=== PATIENT | male | born 1970 | race African-American/Black ===

== ENCOUNTER 2022-12-11 22:13 | Emergency (ER) | payer OTHER ==
[2022-12-11 22:18] VITALS: TEMP 98.2
[2022-12-11] MEDS ORDERED: MORPHINE SULFATE 4 MG/ML SYRINGE IM STA (22:36)
--- NOTE | 2022-12-11 22:42 | ED ---
Extremity Problem HPI - General Chief complaint: Extremity Problem,Nontraumatic Stated complaint: Leg Pain & Swelling Time Seen by Provider: 12/11/22 22:30 Source: patient, RN notes reviewed Mode of arrival: ambulatory Limitations: no limitations - History of Present Illness Initial comments: Patient is a 52 -year-old -[place] male presenting to the emergency room with complaints of right lower extremity pain and swelling which began earlier today. He is concerned regarding the pain and swelling as he has a history of DVT. He is on Eliquis for his DVT history but admits to missing doses at times. He denies any wounds or trauma to his right lower extremity. He reports that the pain is quite severe and worsens with movement. He has not taken any medication to help treat his symptoms. He reports some anxiety at times and states that his pain is giving him some increased anxiety which causes some shortness of breath occasionally but denies any overt shortness of breath, chest pain, abdominal pain, nausea, vomiting, fevers or chills. In addition to his DVT history he has a past medical history significant for hypertension, diabetes, MA, and osteoarthritis. - Related Data Allergies Allergy/AdvReac Type Severity Reaction Status Date / Time ibuprofen [From Motrin] Allergy Unknown Verified 12/11/22 22:18 Review of Systems ROS Statement: Those systems with pertinent positive or pertinent negative responses have been documented in the HPI. ROS Other: All systems not noted in ROS Statement are negative. Past Medical History Past Medical History: Diabetes Mellitus, Deep Vein Thrombosis (DVT), Hypertension, Myocardial Infarction (MA), Osteoarthritis (OA) Additional Past Medical History / Comment(s): Mild heart attack. Arthritis in r ight knee History of Any Multi-Drug Resistant Organisms: None Reported Past Surgical History: No Surgical Hx Reported Past Psychological History: No Psychological Hx Reported Smoking Status: Current every day smoker Past Alcohol Use History: None Reported Past Drug Use History: None Reported General Exam - General Exam Comments Initial Comments: GENERAL: No acute distress, well developed, well nourished. HEENT: Normocephalic, atraumatic. Pupils equal, round, reactive to light. Moist mucous membranes. LUNGS: No respiratory distress. Clear to auscultation, no adventitious sounds, no use of accessory muscles. HEART: Regular rate and rhythm without murmur, rub, or gallop. ABDOMEN: Normal bowel sounds. Soft, non-tender, non-distended. BACK: Normal inspection. EXTREMITIES: Mild nonpitting edema noted to right lower extremity without any redness. Diffuse tenderness noted. 2 + pedal pulse. NEUROLOGIC: Alert & oriented x 3. CN II-XII grossly intact. PSYCHIATRIC: Normal affect and behavior. DERMATOLOGIC: Skin intact, without rashes or lesions noted. Limitations: no limitations Course Vital Signs 12/11/22 22:15 Temperature 98.2 F Pulse Rate 89 Respiratory 16 Rate Blood Pressure 144/75 O2 Sat by Pulse 96 Oximetry Medical Decision Making - Medical Decision Making Was pt. sent in by a medical professional or institution (, RICK, MARKETING PRODUCTION COORDINATOR, urgent care, hospital, or assisted...) When possible be specific @ -No Did you speak to anyone other than the patient for history (EMS, parent, family, police, friend...)? What history was obtained from this source @ -No Did you review nursing and triage notes (agree or disagree)? Why? @ -I reviewed and agree with nursing and triage notes Were old charts reviewed (outside hosp., previous admission, EMS record, old EKG, old radiological studies, urgent care reports/EKG's, assisted records)? Report findings @ -No old charts were reviewed Differential Diagnosis (chest pain, altered mental status, abdominal pain women, abdominal pain men, vaginal bleeding, weakness, fever, dyspnea, syncope, headache, dizziness, GI bleed, back pain, seizure, CVA, palpatations, mental health)? @ -Differential lower extremity swelling: Lower extremity injury, lower extremity sprain, cellulitis, DVT, this is not meant to be an all-inclusive list. EKG interpreted by me (3pts min.). @ -None done X-rays interpreted by me (1pt min.). @ -None done CT interpreted by me (1pt min.). @ -None done U/S interpreted by me (1pt. min.). @ -Report reviewed What testing was considered but not performed or refused? (CT, X-rays, U/S, labs)? Why? @ -None What meds were considered but not given or refused? Why? @ -None Did you discuss the management of the patient with other professionals (professionals i.e. , RICK, MARKETING PRODUCTION COORDINATOR, lab, RT, psych nurse, dialysis social worker, computational geneticist, teacher, donor relations officer, case hardener)? Give summary @ -No Was smoking cessation discussed for >3mins.? @ -No Was critical care preformed (if so, how long)? @ -No Were there social determinants of health that impacted care today? How? (Homelessness, low income, unemployed, alcoholism, drug addiction, transportation, low edu. Level, literacy, decrease access to med. care, [facility], rehab)? @ -No Was there de-escalation of care discussed even if they declined (Discuss DNR or withdrawal of care, Hospice)? DNR status @ -No What co-morbidities impacted this encounter? (DM, HTN, Smoking, COPD, CAD, Cancer, CVA, ARF, Chemo, Hep., AIDS, mental health diagnosis, sleep apnea, morbid obesity)? @ -DVT history. Was patient admitted / discharged? Hospital course, mention meds given and route, prescriptions, significant lab abnormalities, going to OR and other pertinent info. @ -52-year-old -[place] male with complaints of right lower extremity swelling and edema with DVT history with known missing doses of his anticoagulant. Will give morphine for pain and obtain ultrasound Doppler of the right lower extremity. No indication for laboratory studies or other diagnostic imaging at this time. Pain improved with morphine. Doppler ultrasound report reviewed. Evidence of chronic DVT. No acute DVT. Discussed findings with patient. No indication for further diagnostic imaging or laboratory studies at this time. Encouraged adherence to Eliquis regiment. Will give short course of Tylenol 3 starter pack to help with the pain. Encouraged follow-up with his primary care provider. Will discharge home in stable condition on continued anticoagulant of Eliquis. Undiagnosed new problem with uncertain prognosis? @ -No Drug Therapy requiring intensive monitoring for toxicity (Heparin, Nitro, Insulin, Cardizem)? @ -No Were any procedures done? @ -No Diagnosis/symptom? @ -Right lower extremity pain Acute, or Chronic, or Acute on Chronic? @ -Acute Uncomplicated (without systemic symptoms) or Complicated (systemic symptoms)? @ -Uncomplicated Side effects of treatment? @ -No Exacerbation, Progression, or Severe Exacerbation? @ -No Poses a threat to life or bodily function? How? (Chest pain, [place], MA, pneumonia, PE, COPD, DKA, ARF, appy, cholecystitis, CVA, Diverticulitis, Homicidal, Suicidal, threat to staff... and all critical care pts) @ -No Diagnosis/symptom? @ -Chronic DVT Acute, or Chronic, or Acute on Chronic? @ -Chronic Uncomplicated (without systemic symptoms) or Complicated (systemic symptoms)? @ -Uncomplicated Side effects of treatment? @ -none Exacerbation, Progression, or Severe Exacerbation] @ -no Poses a threat to life or bodily function? @ -no Case discussed with Dr. Zuñiga. - Radiology Data Radiology results: report reviewed, image reviewed Disposition Clinical Impression: Chronic deep vein thrombosis (DVT) of right lower extremity Disposition: HOME SELF-CARE Condition: Stable Additional Instructions: Please continue to take your Eliquis as prescribed. Utilize Tylenol 3 starter pack as needed for pain. Do not take additional Tylenol when taking Tylenol 3. Please follow-up with your primary care provider. Please return to the Emergency Department if symptoms worsen or any other concerns. Is patient prescribed a controlled substance at d/c from ED?: No Referrals: None,Stated [Primary Care Provider] - 1-2 days Time of Disposition: 23:50
--- NOTE | 2022-12-11 23:28 | US ---
EXAMINATION TYPE: US venous doppler duplex LE RT DATE OF EXAM: 12/11/2022 11:20 PM COMPARISON: NONE CLINICAL HISTORY: pain swelling dvt hx. Pain in right leg. Pt states he had a DVT in right leg 1 year ago. Is on elloquis x 5 months SIDE PERFORMED: Right TECHNIQUE: The lower extremity deep venous system is examined utilizing real time linear array sonog rosa with graded compression, doppler sonography and color-flow sonography. 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 One was free of echoes and one appeared to have echoes and was not compressible. This was in the prox and mid femoral vein. Distal f em, popliteal vein, and calf veins are negative for DVT. 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 No definite acute deep vein thrombosis.
[2022-12-11] MEDS ORDERED: ACET/COD 300 MG/30 MG STARTER PACK 6 TAB BTL PO STA (23:44)
[2022-12-12 00:16] VITALS: BP 177/119; PULSE 97; RESP 18
== END 2022-12-12 00:20 | disposition home or self-care (01) ==
LOC: EC 22:13
DX: I82.401 Acute embolism and thrombosis of unspecified deep veins of right lower extremity (principal); E11.9 Type 2 diabetes mellitus without complications; I10 Essential (primary) hypertension; I25.2 Old myocardial infarction; F17.200 Nicotine dependence, unspecified, uncomplicated; Z88.6 Allergy status to analgesic agent
CPT/HCPCS: 93971; 99283; 96372; J2270